=== PATIENT | male | born 1995 | race Caucasian/White ===

== ENCOUNTER 2017-10-15 11:02 | Emergency (ER) | payer OTHER ==
--- NOTE | 2017-10-15 11:04 | PDOC ---
History of Present Illness - General Chief Complaint: Respiratory Stated Complaint: FEVER,CONGESTON,COUGH Time Seen by Provider: 10/15/17 11:04 - History of Present Illness Initial Comments: 10/15/17 11:14 22yo male presents with his family from home for eval of a fever. Per the mother , pt with fever of 102 this AM. Gave 1000mg tylenol at 8am. Pt with hx of autism and cannot provide any hx. Acting at baseline. States when he came home from his day program last night be was a little more tired than normal, but ate dinner and went to bed. States he has had a cough x 3 days assoc with rhinorrhea. Cough is productive of yellow sputum todayFever started today. No n/ v/d. No dysuria or foul smell of urine. Pt has an egg allergy and did not have the flu shot this year. No rashes. No other complaints. Mom states both parents have had "colds" with rhinorrhea and slight cough. 10/15/17 11:17 PMHx: autism PSHx: knee surgery (R), circumscision Allergies: egg, chicken derived, maureen Past History - Past Medical History Allergies/Adverse Reactions: Allergies Allergy/AdvReac Type Severity Reaction Status Date / Time egg Allergy Intermediate Swelling Verified 10/15/17 11:09 chicken derived Allergy Unknown Verified 10/15/17 11:09 maureen Allergy Unknown Verified 10/15/17 11:09 Home Medications: Ambulatory Orders Acetaminophen [Tylenol Extra Strength] 500 mg PO PRN PRN 10/15/17 Albuterol 0.083% Nebulizer Otilia [Ventolin 0.083% Nebulizer Soln -] 1 amp NEB PRN PRN 10/15/17 Aripiprazole [Abilify] 10 mg PO BID 10/15/17 Clonidine HCl 0.1 mg PO TID 10/15/17 Loratadine [Claritin] 10 mg PO DAILY 10/15/17 Oseltamivir Phosphate [Tamiflu] 75 mg PO BID #9 capsule 10/15/17 Review of Systems - Review of Systems Able to Perform ROS?: No (autistic, nonverbal) *Physical Exam - Vital Signs 10/15/17 11:19 Selected Entries 10/15/17 11:02 Temperature 100.2 F H Pulse Rate 106 H Respiratory 18 Rate Blood Pressure 106/72 O2 Sat by Pulse 96 Oximetry (%) Weight 84.368 kg - Physical Exam General Appearance: Yes: Nourished, Appropriately Dressed, Other (moving all extremities, ambulated into ED, has twitching movements, at baseline MS ) HEENT: positive: EOMI, RACHEL, TMs Normal, Pharynx Normal, Rhinorrhea Neck: positive: Supple. negative: Lymphadenopathy (R), Lymphadenopathy (L) Respiratory/Chest: positive: Lungs Clear, Normal Breath Sounds. negative: Respiratory Distress, Accessory Muscle Use, Labored Respiration, Rapid RR, Rales , Rhonchi, Wheezing Cardiovascular: positive: Regular Rhythm, S1, S2, Tachycardia Comments:: 10/15/17 11:20 radial and pedal pulses intact Gastrointestinal/Abdominal: positive: Normal Bowel Sounds, Flat, Soft. negative : Guarding, Rebound, Tenderness Musculoskeletal: positive: Normal Inspection. negative: CVA Tenderness (R), CVA Tenderness (L) Extremity: positive: Normal Capillary Refill, Normal Inspection, Normal Range of Motion, Other (ambulatory, moving all extremites, radial and pedal pulses intact) Integumentary: positive: Normal Color, Dry, Warm Neurologic: positive: Alert, Normal Response, Motor Strength 5/5, Other (at baseline ms, follows simple instructions, no focal neuro deficits) Medical Decision Making - Medical Decision Making 10/15/17 11:22 a/p: 22yo male with a fever x 1 day -pt did not have the flu shot, will obtain rapid flu test -coughing - yellow sputum, will obtain xray to r/o pna -fever, will check UA as source of fever -pt is nontoxic in appearance, no exudates on tonsils -acting at baseline -motrin for low grade temp in ED -will monitor and reassess -both parents have URI x 3 days -pt is in a dayprogram 10/15/17 13:08 pt with flu a + cxr clear, ua clear will give tamiflu as symptoms started last night. *DC/Admit/Observation/Transfer Diagnosis at time of Disposition: Influenza A - Discharge Dispostion Disposition: HOME Condition at time of disposition: Stable Admit: No - Prescriptions Prescriptions: Oseltamivir Phosphate [Tamiflu] 75 mg PO BID #9 capsule - Referrals Referrals: Trinidad Tanner MD [Staff Physician] - - Patient Instructions Printed Discharge Instructions: DI for Influenza -- Adult Additional Instructions: Please take all meds as prescribed. Please return to the ED with any further concerns. Please take tylenol or motrin for the fever and drink plenty of fluids. Please follow up with your PMD on tuesday. - Post Discharge Activity
[2017-10-15] MEDS ORDERED: IBUPROFEN 400 MG TABLET (FP) PO ONE ×2 (11:14→11:39)
[2017-10-15 11:16] VITALS: BP 106/72; PULSE 106; TEMP 100.2; BMI 28.3
[2017-10-15 11:42] LABS: PH,URINE 6.5 (4.5-8); URINE APPEARANCE Clear; URINE BILIRUBIN Negative (NEGATIVE); URINE BLOOD Negative (NEGATIVE); URINE COLOR AMBER; URINE GLUCOSE (UA) Negative (NEGATIVE); URINE KETONE Negative (NEGATIVE); URINE LEUK ESTERASE Negative (NEGATIVE); URINE NITRITE Negative (NEGATIVE); URINE PROTEIN Negative (NEGATIVE); URINE UROBILINOGEN 0.2 (0.2-1.0)
[2017-10-15] MEDS ORDERED: OSELTAMIVIR PHOSPHATE 75 MG CAPSULE PO ONE (13:08)
[2017-10-15] MEDS ORDERED: OSELTAMIVIR PHOSPHATE 75 MG CAPSULE ONE (13:17)
== END 2017-10-15 13:22 | disposition home or self-care (01) ==
LOC: FER 11:02
DX: J09.X2 Influenza due to identified novel influenza A virus with other respiratory manifestations (principal)
CPT/HCPCS: 71020-TC; 81003; 87804; 99281-25